=== PATIENT | female | born 1960 | race Caucasian/White ===

== ENCOUNTER 2018-03-12 23:33 | Emergency (ER) | payer BC, OTHER ==
[2018-03-13] MEDS: METOPROLOL TART 50 MG TAB PO (01:31)
[2018-03-13 01:33] LABS: BASO # 0.1 10^3/uL (0.0-0.2); BASO % 0.6 % (0.0-1.0); HEMATOCRIT 45.9 % (36.0-47.0); HEMOGLOBIN 15.1 g/dl (12.0-15.5); IMMATURE GRANULOCYTE % 0.2 % (0-3.0); LYMPH # 4.4 10^3/uL (1.5-4.5); LYMPH % 36.3 % (24.0-44.0); MEAN CORPUSCULAR HEMOGLOBIN 30.9 pg (27.0-33.0); MEAN CORPUSCULAR HGB CONC 32.9 g/dl (32.0-36.5); MEAN CORPUSCULAR VOLUME 93.9 fl (80.0-96.0); MONO # 0.8 10^3/uL (0.0-0.8); MONO % 6.3 % (0.0-5.0); NEUTROPHILS # 6.9 10^3/uL (1.8-7.7); NEUTROPHILS % 56.6 % (36.0-66.0); PLATELET COUNT, AUTOMATED 281 10^3/uL (150-450); RED BLOOD COUNT 4.89 10^6/uL (4.00-5.40); RED CELL DISTRIBUTION WIDTH 13.5 % (11.5-14.5); WHITE BLOOD COUNT 12.1 10^3/uL (4.0-10.0)
[2018-03-13 01:45] LABS: ANION GAP 6 MEQ/L (8-16); BLOOD UREA NITROGEN 16 MG/DL (7-18); CARBON DIOXIDE LEVEL 28 MEQ/L (21-32); CHLORIDE LEVEL 106 MEQ/L (98-107); CPK CREATINE PHOSPHOKINASE 51 U/L (26-192); CREATININE FOR GFR 0.86 MG/DL (0.55-1.30); GLOMERULAR FILTRATION RATE > 60.0 (>51); GLUCOSE, FASTING 153 MG/DL (70-100); POTASSIUM SERUM 3.7 MEQ/L (3.5-5.1); SODIUM LEVEL 140 MEQ/L (136-145); TROPONIN I < 0.02 NG/ML (< 0.10)
[2018-03-13 01:50] LABS: CK-MB VALUE MASS < 1.0 NG/ML (<3.6); FREE THYROXINE INDEX 2.9 % (1.3-4.8); MB/CK RELATIVE INDEX 1.96 (< OR =4); T UPTAKE 32 % (30-39)
[2018-03-13 02:11] LABS: INR 0.92; PROTHROMBIN TIME 12.4 SECONDS (12.1-14.4)
[2018-03-13 02:12] LABS: PARTIAL THROMBOPLASTIN TIME 35.2 SECONDS (25.4-37.6)
== END 2018-03-13 04:58 | disposition home or self-care (01) ==
LOC: M ED 23:33
DX: I48.92 Unspecified atrial flutter (principal); I10 Essential (primary) hypertension; F17.200 Nicotine dependence, unspecified, uncomplicated; Z79.899 Other long term (current) drug therapy
CPT/HCPCS: 71045

== ENCOUNTER 2018-05-22 09:01 | Emergency (ER) | payer BC, OTHER ==
[2018-05-22 09:57] LABS: INR 0.96; PROTHROMBIN TIME 12.8 SECONDS (12.1-14.4)
[2018-05-22 10:22] LABS: ALBUMIN 3.4 GM/DL (3.2-5.2); ALBUMIN/GLOBULIN RATIO 0.83 (1.00-1.93); ALKALINE PHOSPHATASE 97 U/L (45-117); ALT/SGPT 32 U/L (12-78); ANION GAP 6 MEQ/L (8-16); AST/SGOT 16 U/L (7-37); BILIRUBIN,DIRECT 0.1 MG/DL (0.0-0.2); BILIRUBIN,TOTAL 0.4 MG/DL (0.2-1.0); BLOOD UREA NITROGEN 14 MG/DL (7-18); CARBON DIOXIDE LEVEL 28 MEQ/L (21-32); CHLORIDE LEVEL 107 MEQ/L (98-107); CK-MB VALUE MASS < 1.0 NG/ML (<3.6); CPK CREATINE PHOSPHOKINASE 28 U/L (26-192); CREATININE FOR GFR 0.87 MG/DL (0.55-1.30); FREE T4 1.12 NG/DL (0.76-1.46); GLOMERULAR FILTRATION RATE > 60.0 (>51); GLUCOSE, FASTING 176 MG/DL (70-100); LIPASE 77 U/L (73-393); MAGNESIUM LEVEL 1.9 MG/DL (1.8-2.4); MB/CK RELATIVE INDEX 3.57 (< OR =4); PHOSPHORUS LEVEL 2.7 MG/DL (2.5-4.9); POTASSIUM SERUM 3.9 MEQ/L (3.5-5.1); SODIUM LEVEL 141 MEQ/L (136-145); TOTAL PROTEIN 7.5 GM/DL (6.4-8.2); TROPONIN I < 0.02 NG/ML (< 0.10)
[2018-05-22] MEDS ORDERED: ISOVUE-370 76% 100ML VIAL (Q9967) As Ordered (12:00)
[2018-05-22 12:15] LABS: BASO # 0.1 10^3/uL (0.0-0.2); BASO % 0.6 % (0.0-1.0); HEMATOCRIT 47.8 % (36.0-47.0); HEMOGLOBIN 15.2 g/dl (12.0-15.5); IMMATURE GRANULOCYTE % 0.4 % (0-3.0); LYMPH # 2.3 10^3/uL (1.5-4.5); LYMPH % 23.4 % (24.0-44.0); MEAN CORPUSCULAR HEMOGLOBIN 29.6 pg (27.0-33.0); MEAN CORPUSCULAR HGB CONC 31.8 g/dl (32.0-36.5); MONO # 0.5 10^3/uL (0.0-0.8); MONO % 5.1 % (0.0-5.0); NEUTROPHILS # 6.8 10^3/uL (1.8-7.7); NEUTROPHILS % 70.5 % (36.0-66.0); PLATELET COUNT, AUTOMATED 253 10^3/uL (150-450); RED BLOOD COUNT 5.14 10^6/uL (4.00-5.40); RED CELL DISTRIBUTION WIDTH 13.6 % (11.5-14.5); WHITE BLOOD COUNT 9.6 10^3/uL (4.0-10.0)
[2018-05-22 17:17] LABS: CK-MB VALUE MASS < 1.0 NG/ML (<3.6); CPK CREATINE PHOSPHOKINASE 31 U/L (26-192); MB/CK RELATIVE INDEX 3.23 (< OR =4); TROPONIN I < 0.02 NG/ML (< 0.10)
== END 2018-05-22 19:11 | disposition home or self-care (01) ==
LOC: M ED 09:01
DX: I48.92 Unspecified atrial flutter (principal); I10 Essential (primary) hypertension; E11.9 Type 2 diabetes mellitus without complications; F17.200 Nicotine dependence, unspecified, uncomplicated; Z82.49 Family history of ischemic heart disease and other diseases of the circulatory system; Z79.899 Other long term (current) drug therapy; Z79.82 Long term (current) use of aspirin
CPT/HCPCS: Q9967

== ENCOUNTER 2019-06-22 20:46 | Emergency (ER) | payer BC, OTHER ==
[~2019-06-22] VITALS: Ht 162.6 cm; Wt 106.8 kg
[~2019-06-22 20:46] MED LIST: ASPI81TA52; CBD oil PO; LEVO50TA5; LISI10TA4 PO; LOPR1TAB6 PO; TIZANIDINE; VITA200016 PO
[2019-06-22] MEDS ORDERED: ELIQ5TAB OR (21:09)
[2019-06-22] MEDS ORDERED: ATOR1TAB19 OR (21:09)
[2019-06-22] MEDS ORDERED: PANT40TA3 OR (21:09)
[2019-06-22 21:18] LABS: HEMATOCRIT 47.9 % (36.0-47.0); MEAN CORPUSCULAR HEMOGLOBIN 29.4 pg (27.0-33.0); MEAN CORPUSCULAR HGB CONC 31.3 g/dl (32.0-36.5); MEAN CORPUSCULAR VOLUME 93.7 fl (80.0-96.0); PLATELET COUNT, AUTOMATED 271 10^3/uL (150-450); RED BLOOD COUNT 5.11 10^6/uL (4.00-5.40)
[2019-06-22 21:19] LABS: WHITE BLOOD COUNT 15.5 10^3/uL (4.0-10.0)
[2019-06-22] MEDS ORDERED: METOPROLOL TART 25 MG TABLET PO ONE (21:30)
[2019-06-22 21:35] LABS: BASOPHILS 2 % (0-1); LYMPHOCYTES 40 % (16-44); MONOCYTES 5 % (0-5); NEUTROPHILS 53 % (28-66); PLATELET ESTIMATE NORMAL (NORMAL)
[2019-06-22 21:47] LABS: BLOOD UREA NITROGEN 15 MG/DL (7-18); CALCIUM LEVEL 8.7 MG/DL (8.8-10.2); CARBON DIOXIDE LEVEL 29 MEQ/L (21-32); CHLORIDE LEVEL 109 MEQ/L (98-107); CK-MB VALUE MASS < 1.0 NG/ML (<3.6); CPK CREATINE PHOSPHOKINASE 37 U/L (26-192); CREATININE FOR GFR 0.97 MG/DL (0.55-1.30); GLOMERULAR FILTRATION RATE > 60.0 (>45); GLUCOSE, FASTING 176 MG/DL (70-100); POTASSIUM SERUM 4.2 MEQ/L (3.5-5.1); SODIUM LEVEL 145 MEQ/L (136-145); TROPONIN I < 0.02 NG/ML (< 0.10)
[2019-06-23 00:43] LABS: FREE THYROXINE INDEX 3.1 % (1.3-4.8); T UPTAKE 36 % (30-39); THYROXINE (T4) 8.6 UG/DL (4.5-12.0)
[2019-06-23 01:11] LABS: CK-MB VALUE MASS < 1.0 NG/ML (<3.6); CPK CREATINE PHOSPHOKINASE 31 U/L (26-192); MB/CK RELATIVE INDEX 3.23 (< OR =4); TROPONIN I < 0.02 NG/ML (< 0.10)
[2019-06-23 01:27] VITALS: BP 158/78
[2019-06-23] MEDS ORDERED: METOPROLOL TART 25 MG TABLET PO ONE (01:30)
[2019-06-23 01:37] VITALS: BP 140/79
--- NOTE | 2019-06-23 08:49 | REP ---
Portable chest x-ray: Single view. History: Chest pain. Comparison study: May 22, 2018. Findings: EKG monitoring electrodes overlie the chest. There is minimal plate-like atelectasis at the left base. Pleural angles are sharp. Lung scott are otherwise clear. Pulmonary vasculature is not increased. Impression: Minimal linear plate-like atelectasis at the left base. Otherwise no acute disease. Electronically Signed by Michael Benitez MD 06/23/2019 08:41 A
--- NOTE | 2019-06-24 00:34 | ECGEPIP ---
[facility] - ED Test Date: 2019-06-22 Pat Name: COLEEN YAÑEZ Department: Room: - Gender: Female [employer]: jody : 1960 Requested By: JAMARCUS AMBROCIO Order Number: [id number] Reading MD: Ru Prescott Measurements Intervals [place] Rate: 113 P: MS: 0 QRS: -61 QRSD: 145 T: 110 QT: 348 QTc: 479 Interpretive Statements ATRIAL FLUTTER/TACHYCARDIA WITH RAPID VENTRICULAR RESPONSE MARKED LEFT AXIS DEVIATION Left bundle branch block new from tracing done 05-22-18 Electronically Signed on 06-24-2019 0:34:24 EST by Ru Prescott
== END 2019-06-23 01:38 | disposition home or self-care (01) ==
LOC: M ED 20:46
DX: I48.92 Unspecified atrial flutter (principal); I44.7 Left bundle-branch block, unspecified; E66.9 Obesity, unspecified; I10 Essential (primary) hypertension; E78.5 Hyperlipidemia, unspecified; K21.9 Gastro-esophageal reflux disease without esophagitis; E03.9 Hypothyroidism, unspecified; Z87.891 Personal history of nicotine dependence; Z79.01 Long term (current) use of anticoagulants; Z79.899 Other long term (current) drug therapy; Z88.8 Allergy status to other drugs, medicaments and biological substances

== ENCOUNTER 2024-02-25 20:44 | Emergency (ER) | payer MEDICARE, BC ==
[~2024-02-25] VITALS: Ht 162.6 cm; Wt 100.4 kg
[~2024-02-25 20:44] MED LIST changes: +ATOR1TAB19 OR; +ELIQ5TAB OR; +LISI10TA22 PO; -LISI10TA4 PO; +PANT40TA29 OR
[2024-02-25 20:45] VITALS: TEMP 97.2
[2024-02-25 21:26] LABS: BASO # 0.1 10^3/uL (0.0-0.2); BASO % 0.7 % (0.0-1.0); HEMATOCRIT 46.1 % (36.0-47.0); HEMOGLOBIN 14.9 g/dl (12.0-15.5); LYMPH # 4.8 10^3/uL (1.5-5.0); LYMPH % 37.5 % (24.0-44.0); MEAN CORPUSCULAR HEMOGLOBIN 29.3 pg (27.0-33.0); MEAN CORPUSCULAR HGB CONC 32.3 g/dl (32.0-36.5); MEAN CORPUSCULAR VOLUME 90.7 fl (80.0-96.0); MONO # 0.8 10^3/uL (0.0-0.8); MONO % 6.1 % (2.0-8.0); PLATELET COUNT, AUTOMATED 287 10^3/uL (150-450); RED BLOOD COUNT 5.08 10^6/uL (4.00-5.40); WHITE BLOOD COUNT 12.7 10^3/uL (4.0-10.0)
[2024-02-25 21:44] LABS: CK-MB VALUE MASS < 1.0 NG/ML (<3.6); INR 1.01; LIPASE 41 U/L (12-53); PARTIAL THROMBOPLASTIN TIME 37.8 SECONDS (24.8-34.2)
[2024-02-25 21:46] LABS: ALBUMIN 3.5 G/DL (3.2-5.2); ALKALINE PHOSPHATASE 140 U/L (46-116); ALT/SGPT 30 U/L (7.0-40); AST/SGOT 12 U/L (<34); BILIRUBIN,DIRECT < 0.1 MG/DL (<0.4); BILIRUBIN,TOTAL 0.3 MG/DL (0.3-1.2); BLOOD UREA NITROGEN 15 MG/DL (9-23); CALCIUM LEVEL 9.2 MG/DL (8.3-10.6); CARBON DIOXIDE LEVEL 25 MMOL/L (20-31); CHLORIDE LEVEL 109 MMOL/L (98-107); GLOMERULAR FILTRATION RATE > 60.0 (>45); GLUCOSE, FASTING 221 MG/DL (74-106); POTASSIUM SERUM 4.5 MMOL/L (3.5-5.1); SODIUM LEVEL 142 MMOL/L (136-145); TOTAL PROTEIN 6.8 G/DL (5.7-8.2)
[2024-02-25 21:48] LABS: THYROID STIMULATING HORMONE 1.626 uIU/ML (0.55-4.78)
[2024-02-25 21:50] LABS: CPK CREATINE PHOSPHOKINASE 33 U/L (34-145); MB/CK RELATIVE INDEX 3.03 (< OR =4)
[2024-02-25] MEDS: KETOROLAC 30 MG/ML 1ML VIAL IM ONE (22:13)
[2024-02-25 23:14] VITALS: O2SAT 96
[2024-02-25 23:15] VITALS: BP 118/55
== END 2024-02-25 23:35 | disposition home or self-care (01) ==
LOC: M ED 20:44
DX: R07.9 Chest pain, unspecified (principal); I48.3 Typical atrial flutter; I45.10 Unspecified right bundle-branch block; I44.4 Left anterior fascicular block; E11.9 Type 2 diabetes mellitus without complications; I10 Essential (primary) hypertension; E78.5 Hyperlipidemia, unspecified; K21.9 Gastro-esophageal reflux disease without esophagitis; E03.9 Hypothyroidism, unspecified; F10.10 Alcohol abuse, uncomplicated; Z88.8 Allergy status to other drugs, medicaments and biological substances; Z79.01 Long term (current) use of anticoagulants; Z79.811 Long term (current) use of aromatase inhibitors; Z79.899 Other long term (current) drug therapy
CPT/HCPCS: 71045; 80048; 80076; 82550; 82553; 83690; 84443; 84484; 85025; 85610; 85730; 93005; 99284; J1885

== ENCOUNTER 2024-08-26 18:20 | Emergency (ER) | payer MEDICARE, BC ==
[~2024-08-26] VITALS: Ht 152.4 cm; Wt 98.9 kg
[2024-08-26 18:25] VITALS: TEMP 96.9
[2024-08-26] MEDS: ASPIRIN 81MG CHEW TABLET PO ONE (19:35)
[2024-08-26 20:08] LABS: BASO # 0.1 10^3/uL (0.0-0.2); BASO % 0.7 % (0.0-1.0); EOS # 0.1 10^3/uL (0.0-0.5); EOS % 1.1 % (0.0-3.0); HEMATOCRIT 49.7 % (36.0-47.0); HEMOGLOBIN 16.4 g/dl (12.0-15.5); LYMPH # 3.2 10^3/uL (1.5-5.0); LYMPH % 28.5 % (24.0-44.0); MEAN CORPUSCULAR HEMOGLOBIN 29.7 pg (27.0-33.0); MONO # 0.6 10^3/uL (0.0-0.8); MONO % 5.2 % (2.0-8.0); NEUTROPHILS # 7.2 10^3/uL (1.5-8.5); PLATELET COUNT, AUTOMATED 215 10^3/uL (150-450); RED BLOOD COUNT 5.52 10^6/uL (4.00-5.40); WHITE BLOOD COUNT 11.2 10^3/uL (4.0-10.0)
[2024-08-26] MEDS: METOPROLOL 5 MG/5 ML VIAL IV SCH (20:51)
[2024-08-26 21:31] LABS: D-DIMER QUANT 0.41 ug/mL (<0.5); INR 1.56; PARTIAL THROMBOPLASTIN TIME 45.8 SECONDS (24.8-34.2); PROTHROMBIN TIME 18.9 SECONDS (12.5-14.5)
[2024-08-26 21:45] VITALS: BP 159/72
[2024-08-26 21:45] LABS: CK-MB VALUE MASS < 1.0 NG/ML (<3.6)
[2024-08-26 21:48] LABS: FREE T4 1.33 NG/DL (0.89-1.76); THYROID STIMULATING HORMONE 0.982 uIU/ML (0.55-4.78)
[2024-08-26 21:50] LABS: ALBUMIN 3.5 G/DL (3.2-5.2); ALKALINE PHOSPHATASE 128 U/L (35-104); ALT/SGPT 40 U/L (7.0-40); AST/SGOT 23 U/L (<34); BILIRUBIN,DIRECT < 0.1 MG/DL (<0.4); BILIRUBIN,TOTAL 0.4 MG/DL (0.3-1.2); BLOOD UREA NITROGEN 17 MG/DL (9-23); CARBON DIOXIDE LEVEL 25 MMOL/L (20-31); CHLORIDE LEVEL 107 MMOL/L (98-107); CPK CREATINE PHOSPHOKINASE 34 U/L (34-145); GLOMERULAR FILTRATION RATE > 60.0 (>45); GLUCOSE, FASTING 240 MG/DL (74-106); MB/CK RELATIVE INDEX 2.94 (< OR =4); PHOSPHORUS LEVEL 4.1 MG/DL (2.4-5.1); POTASSIUM SERUM 4.4 MMOL/L (3.5-5.1); SODIUM LEVEL 143 MMOL/L (136-145); TOTAL PROTEIN 6.9 G/DL (5.7-8.2)
[2024-08-26 23:13] LABS: CK-MB VALUE MASS < 1.0 NG/ML (<3.6)
[2024-08-26 23:15] LABS: CPK CREATINE PHOSPHOKINASE 26 U/L (34-145); MB/CK RELATIVE INDEX 3.84 (< OR =4)
[2024-08-27 00:08] VITALS: BP 137/86; O2SAT 98
== END 2024-08-27 00:10 | disposition home or self-care (01) ==
LOC: M ED 18:20
DX: R07.9 Chest pain, unspecified (principal); I48.91 Unspecified atrial fibrillation; E11.9 Type 2 diabetes mellitus without complications; I10 Essential (primary) hypertension; E78.5 Hyperlipidemia, unspecified; K21.9 Gastro-esophageal reflux disease without esophagitis; Z87.891 Personal history of nicotine dependence; Z79.01 Long term (current) use of anticoagulants; Z79.899 Other long term (current) drug therapy; Z88.8 Allergy status to other drugs, medicaments and biological substances